=== PATIENT | female | born 1955 | race Hispanic/Latino ===

== ENCOUNTER 2024-06-01 16:46 | Emergency (ER) | payer OTHER ==
[~2024-06-01] VITALS: Ht 157.5 cm; Wt 48.1 kg
[2024-06-01 16:50] VITALS: BP 158/94; PULSE 115; RESP 16; TEMP 99.5
--- NOTE | 2024-06-01 17:18 | ERN ---
General Chief Complaint: Other Problems Stated Complaint: DOCTOR REFERAL FOR TESTING Time Seen by MD: 16:50 Time Seen by Midlevel: 16:50 Source: patient History of Present Illness Initial Comments The patient is a 69-year-old female presenting to the ER for a wellness examination. The patient was confused as to why she was told to come to the emergency department. She states she is currently being followed by an oncologist over at [facility]. She is currently being worked up for possible uterine cancer. The patient states she has no formal diagnosis. She last saw her oncologist on Tuesday May 28, 2024 where she had blood work performed. Today she received a phone call from her oncologist to report to her nearest ER to evaluate for a possible infection. The patient is unsure why she received his phone call today. She has no symptoms on arrival. She states that for the last couple of days she has not had a fever. Allergies: Coded Allergies: codeine (Unverified Allergy, Unknown, 06/01/24) Past Medical History Past Medical History: Diabetes-Type II, High Cholesterol, Hypertension Past Surgical History: None ROS Dictation CONSTITUTIONAL: Negative except for HPI HEAD/FACE: Negative except for HPI EENT: Negative except for HPI RESPIRATORY: Negative except for HPI GASTROINTESTINAL/ABDOMINAL: Negative except for HPI GENITOURINARY: Negative except for HPI MUSCULOSKELETAL: Negative except for HPI INTEGUMENTARY: Negative except for HPI NEUROLOGICAL/PSYCH: Negative except for HPI HEMATOLOGIC/LYMPHATIC: Negative except for HPI All Systems Negative, Except as noted above. 13 point review of systems assessed and all negative except for above. Physical Exam Physical Exam Dictation Vital Signs reviewed General Appearance: Alert, oriented x 3, no acute distress, well developed, nourished. Head and Face: non-traumatic. Eyes: PERRL, pink conjunctivas, eyelid no trauma, anterior chamber with arcus senilis. Ears: Pinnas intact and no signs of trauma or erythema ear canals clear and no discharge TM no erythema Nose: No discharge, no bleeding. Oropharynx: Mouth normal, tongue pink, pharynx clear,no erythema, tonsils no exudates, no abscesses noted, mucous membrane moist Neck: Supple, non-tender, no thyromegaly, no masses, no JVD, no bruits Breast:Deferred Chest:No tenderness, no crepitus, no paradoxical movement, no retractions Lungs:Clear, well-ventilated, symmetric, no rales, no wheezing, no rhonchi, no stridor, good breath sounds bilaterally Heart: Regular rate, regular rhythm, no murmur, no gallops Vascular: no peripheral edema, Abdomen: Soft, positive bowel sounds, nondistended, no guarding, nontender, no rebound, no masses no hepatomegaly, no splenomegaly, no Walker's sign, no hernias. Rectal: Deferred Genital: Deferred Neurological: Normal speech, motor function intact, sensory function intact Musculoskeletal: Neck nontender, full range of motion, back nontender, full range of motion, Extremities: nontender, full range of motion Skin: Color pink, dry, no turgor, no rash, no lacerations, no abrasions, no contusions. Lymphatic: Deferred MDM MDM: The patient is a 69-year-old female presenting to the ER for a wellness examination. The patient was confused as to why she was told to come to the emergency department. She states she is currently being followed by an oncologist over at [facility]. She is currently being worked up for possible uterine cancer. The patient states she has no formal diagnosis. She last saw her oncologist on Tuesday May 28, 2024 where she had blood work performed. Today she received a phone call from her oncologist to report to her nearest ER to evaluate for a possible infection. The patient is unsure why she received his phone call today. She has no symptoms on arrival. She states that for the last couple of days she has not had a fever. On exam patient is in no acute distress. She does have a low-grade temperature and is tachycardic heart rate of 1 one five. My plan was to obtain a full septic workup however when I explained this to the patient she does not believe that is necessary at this time. She states she has an appointment with her oncologist tomorrow and will be following up. She does not want blood drawn today and tomorrow as that seems a bit excessive for her given that she was no symptoms. The patient will be discharged home. Strict return precautions were given Differential diagnosis: Wellness examination, UTI, electrolyte abnormality, dehydration There are no social concerns with this patient. Prescription drug management Prescriptions will include: None Medical management and examination interpretation discussions were had by me with other qualified healthcare professionals as indicated for the patient's care. ED Course Vital Signs Date Time Temp Pulse Resp B/P (MAP) Pulse Ox O2 Delivery O2 Flow Rate FiO2 06/01/24 16:50 99.5 115 16 158/94 96 Room Air 0 DX & DISP Disposition: Discharge Departure Impression: Primary Impression: Wellness examination Condition: Stable Additional Instructions: Your vital signs today are as follows. Temp: 99.5 Pulse: 115 beats per minute Respiratory Rate: 16 O2 Saturation: 96% You mentioned that you are currently being evaluated for possible cancer. Your vital signs are concerning for an underlying disease however you mentioned that you do not have any symptoms. You specifically denied any chest pain, cough, shortness of breath, or any other symptoms at this time. You mentioned you will be following up with your oncologist tomorrow. I offered a full workup but you ultimately decided to follow up with your primary care doctor tomorrow. If you develop any new or worsening symptoms please report to the ER for further evaluation. Time of Disposition: 17:15 I have reviewed the case, and I agree with, Diagnosis and Plan I performed the substantive portion of the visit. I have reviewed and personally made and approve the management plan that is documented in the note by myself or the ROSALIA. I acknowledge for responsibility for the patient's management plan. SHARRI LOZADA Jun 01, 2024 17:18
--- NOTE | 2024-06-01 18:52 | NUR ---
PT LEFT FROM LOBBY WITHOUT DISCHARGE PAPERWORK
== END 2024-06-01 18:53 | disposition home or self-care (01) ==
LOC: EDH 16:46
DX: R41.0 Disorientation, unspecified (principal); E11.9 Type 2 diabetes mellitus without complications; E78.00 Pure hypercholesterolemia, unspecified; I10 Essential (primary) hypertension; Z88.5 Allergy status to narcotic agent
CPT/HCPCS: 99281